=== PATIENT | female | born 1935 | race Caucasian/White ===

== ENCOUNTER 2021-07-23 09:19 | Emergency (ER) | payer MEDICARE ==
[~2021-07-23] VITALS: Ht 160 cm; Wt 55.3 kg
[2021-07-23 09:20] VITALS: BP 143/69
[2021-07-23] MEDS ORDERED: PRD20T PO (09:42)
--- NOTE | 2021-07-23 09:42 | ED Integumentary General ---
General Chief Complaint: Skin/Wound Problems Stated Complaint: RASH Nursing Triage Note: PT ARRIVED BY PRIVATE VEHICLE WITH CHIEF COMPLAINT OF RASH. PT WAS ALERT, ORIENTED X 4 AND AMBULATORY. PT STATED SHE WAS SEEN AT URGENT CARE ON SATURDAY FOR IT AND GOT A SHOT. SHE WENT BACK YESTERDAY FOR ANOTHER SHOT, BUT THEY WOULDN'T GIVE HER ONE, SO THEY GAVE HER TRIAMCINOLONE ACETONIDE CREAM 0.1%. SHE IS MISERABE SO SHE CAME HERE. PT STATED ONSET WAS PROBABLY SATURDAY NIGHT. PT IS ALLERGIC TO POISON CHENTE AND OAK. VITALS WERE DONE AND REPORT WAS GIVEN TO PROVIDER. History of Present Illness Date Seen by Provider: Jul 23, 2021 Time Seen by Provider: 09:38 Initial Comments 85-year-old female presents with complaint of a rash on her hands and her face under her breast for the past 5 days. States it began after working in her neighbor's yard, she has a history of poison chente. Seen by her PCP and given a shot 3 days ago and had relief for just a few hours and then it got worse the next day. She saw him again and got a prescription for steroid cream, was denied being given another shot. Today she is visible, with spreading rash and increase itching. Denies any chest pain, shortness of air or wheezing. Denies any tongue, mouth or lip swelling. Denies any fever chills or cough. Allergies and Home Medications Allergies Coded Allergies: poison chente extract (Verified Allergy, Unknown, 07/23/21) poison oak extract (Verified Allergy, Unknown, 07/23/21) Home Medications Prednisone 20 Mg Tab, 60 MG PO DAILY Take 3 po qd for 4 days, then 2 po for 5 days, then 1 po daily for 5 days Prescribed by: CONY BEATTY on 07/23/21 0942 Patient Home Medication List Home Medication List Reviewed: Yes Review of Systems Review of Systems Constitutional: No fever, No malaise, No weakness EENTM: no symptoms reported Respiratory: no symptoms reported Skin: see HPI, pruritus, rash Past Pdjsvgw-Rfbhda-Odnsbk Hx Patient Social History Tobacco Use?: No Smoking Status: Never a Smoker Substance use?: No Alcohol Use?: No Pt feels they are or have been: No Physical Exam Vital Signs Vital Signs - First Documented 07/23/21 09:20 Temp 37.1 Pulse 55 Resp 16 B/P (MAP) 143/69 (93) Pulse Ox 100 O2 Delivery Room Air Capillary Refill : Less Than 3 Seconds General Appearance: WD/WN, no apparent distress Skin: normal color, warm/dry, rash (erythematous maculopapular rash confluent of face, scattered on hands and fingers (did not examine chest). Consistent w contact derm) Progress/Results/Core Measures Results/Orders Vital Signs/I&O 07/23/21 09:20 Temp 37.1 Pulse 55 Resp 16 B/P (MAP) 143/69 (93) Pulse Ox 100 O2 Delivery Room Air Blood Pressure Mean: 93 Departure Impression Primary Impression: Contact dermatitis due to poison chente Disposition: HOME, SELF-CARE Condition: Stable Departure-Patient Inst. Decision time for Depature: 09:39 Referrals: VERENA RAMIREZ MD (PCP/Family) Primary Care Physician Patient Instructions: Poison Chente, Poison Hartman, Poison Sumac (DC) Add. Discharge Instructions: Follow up with Dr Ramirez in 1 week if not improving, sooner if worse. All discharge instructions reviewed with patient and/or family. Voiced understanding. Scripts Prednisone (Prednisone) 20 Mg Tab 60 MG PO DAILY, #19 TAB 0 Refills Take 3 po qd for 4 days, then 2 po for 5 days, then 1 po daily for 5 days Prov: CONY BEATTY DO 07/23/21 CONY BEATTY DO Jul 23, 2021 09:42
== END 2021-07-23 09:45 | disposition home or self-care (01) ==
LOC: EDUNIT# 09:19 → ER FS 09:22
DX: L25.5 Unspecified contact dermatitis due to plants, except food (principal)
CPT/HCPCS: 99282

== ENCOUNTER 2022-08-05 03:52 | Emergency (ER) | payer MEDICARE ==
[~2022-08-05] VITALS: Ht 160 cm; Wt 56.2 kg
[~2022-08-05 03:52] MED LIST: PRD20T PO
--- NOTE | 2022-08-05 04:09 | ED General ---
General Chief Complaint: General Problems/Pain Stated Complaint: SHAKY/COLD History of Present Illness Date Seen by Provider: Aug 05, 2022 Time Seen by Provider: 04:09 Initial Comments 86-year-old female with no significant PMH is here with complaints of waking up around 3:30 AM and feeling very shaky and mild burning sensation in her face. Patient states that she was mixing periods with killers around 11 AM yesterday morning, admixed about 14 gallons of 4 different types of weed killer sitting in her garage. She mixed Calvin, eraser and 2 other types of regular which she cannot remember the name. She is provided on her circular driveway. Patient took a shower after this. Patient is concerned that she is waking up shaky due to the exposure to the retailers. Denies ingestion of weed killer, diarrhea, nausea and vomiting, shortness of breath, headache, dizziness, blurry vision. Allergies and Home Medications Allergies Coded Allergies: poison hailey extract (Verified Allergy, Unknown, 07/23/21) poison oak extract (Verified Allergy, Unknown, 07/23/21) Patient Home Medication List Home Medication List Reviewed: Yes Prednisone (Prednisone) 20 Mg Tab, 60 MG PO DAILY Prescribed by: CONY BEATTY on 07/23/21 0942 Review of Systems Review of Systems Constitutional: no symptoms reported EENTM: no symptoms reported Respiratory: no symptoms reported Cardiovascular: no symptoms reported Gastrointestinal: no symptoms reported Genitourinary: no symptoms reported Musculoskeletal: no symptoms reported Skin: no symptoms reported Psychiatric/Neurological: No Symptoms Reported Hematologic/Lymphatic: No Symptoms Reported Immunological/Allergic: no symptoms reported Past Iqdncjv-Xwnheg-Ohccts Hx Patient Social History Tobacco Use?: No Use of E-Cig and/or Vaping dev: No Substance use?: No Alcohol Use?: No Pt feels they are or have been: No Immunizations Up To Date Influenza Vaccine Up-to-Date: Yes; Up-to-Date COVID19 Vaccine 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 oz. 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 Norm as Tested Skin: Normal Color Focused Exam Lactate Level 08/05/22 04:05: Lactic Acid Level 2.15*H Lactic Acid Level Laboratory Tests Test 08/05/22 04:05 Lactic Acid Level 2.15 MMOL/L (0.50-2.00) *H Progress/Results/Core Measures Suspected Sepsis SIRS Temperature: Pulse: Respiratory Rate: Laboratory Tests 08/05/22 04:05: White Blood Count 6.4 Blood Pressure / Mean: 08/05/22 04:05: Lactic Acid Level 2.15*H Laboratory Tests 08/05/22 04:05: Creatinine 0.80, Platelet Count 172, Total Bilirubin 0.2 Results/Orders Lab Results Laboratory Tests Test 08/05/22 04:05 08/05/22 04:45 Range/Units White Blood Count 6.4 4.3-11.0 10^3/uL Red Blood Count 3.55 L 3.80-5.11 10^6/uL Hemoglobin 10.9 L 11.5-16.0 g/dL Hematocrit 33 L 35-52 % Mean Corpuscular Volume 92 80-99 fL Mean Corpuscular Hemoglobin 31 25-34 pg Mean Corpuscular Hemoglobin Concent 33 32-36 g/dL Red Cell Distribution Width 13.7 10.0-14.5 % Platelet Count 172 130-400 10^3/uL Mean Platelet Volume 10.8 9.0-12.2 fL Immature Granulocyte % (Auto) 0 % Neutrophils (%) (Auto) 85 H 42-75 % Lymphocytes (%) (Auto) 11 L 12-44 % Monocytes (%) (Auto) 1 0-12 % Eosinophils (%) (Auto) 3 0-10 % Basophils (%) (Auto) 0 0-10 % Neutrophils # (Auto) 5.4 1.8-7.8 10^3/uL Lymphocytes # (Auto) 0.7 L 1.0-4.0 10^3/uL Monocytes # (Auto) 0.0 0.0-1.0 10^3/uL Eosinophils # (Auto) 0.2 0.0-0.3 10^3/uL Basophils # (Auto) 0.0 0.0-0.1 10^3/uL Immature Granulocyte # (Auto) 0.0 0.0-0.1 10^3/uL Sodium Level 140 135-145 MMOL/L Potassium Level 4.0 3.6-5.0 MMOL/L Chloride Level 107 98-107 MMOL/L Carbon Dioxide Level 24 21-32 MMOL/L Anion Gap 9 5-14 MMOL/L Blood Urea Nitrogen 19 H 7-18 MG/DL Creatinine 0.80 0.60-1.30 MG/DL Estimat Glomerular Filtration Rate 72 BUN/Creatinine Ratio 24 Glucose Level 96 70-105 MG/DL Lactic Acid Level 2.15 *H 0.50-2.00 MMOL/L Calcium Level 8.5 8.5-10.1 MG/DL Corrected Calcium 8.7 8.5-10.1 MG/DL Magnesium Level 1.8 1.6-2.4 MG/DL Total Bilirubin 0.2 0.1-1.0 MG/DL Aspartate Amino Transf (AST/SGOT) 20 5-34 U/L Alanine Aminotransferase (ALT/SGPT) 12 0-55 U/L Alkaline Phosphatase 62 40-136 U/L Troponin I < 0.30 <0.30 NG/ML Total Protein 5.7 L 6.4-8.2 GM/DL Albumin 3.7 3.2-4.5 GM/DL Urine Color YELLOW Urine Clarity SLIGHTLY CLOUDY Urine pH 6.0 5-9 Urine Specific [place] 1.010 L 1.016-1.022 Urine Protein NEGATIVE NEGATIVE Urine Glucose (UA) NEGATIVE NEGATIVE Urine Ketones NEGATIVE NEGATIVE Urine Nitrite POSITIVE H NEGATIVE Urine Bilirubin NEGATIVE NEGATIVE Urine Urobilinogen 0.2 < = 1.0 MG/DL Urine Leukocyte Esterase TRACE H NEGATIVE Urine RBC (Auto) 1+ H NEGATIVE Urine RBC NONE /HPF Urine WBC 50-100 H /HPF Urine Crystals NONE /LPF Urine Bacteria LARGE H /HPF Urine Casts NONE /LPF Urine Mucus NEGATIVE /LPF Urine Culture Indicated YES My Orders Orders - MANOLO LAWSON MD Cbc With Automated Diff (08/05/22 04:09) Comprehensive Metabolic Panel (08/05/22 04:09) Lactic Acid Analyzer (08/05/22 04:09) Magnesium (08/05/22 04:09) Ua Culture If Indicated (08/05/22 04:09) Ed Iv/Invasive Line Start (08/05/22 04:28) 1/2 Ns Iv Solution (0.45% Sodium Chlorid (08/05/22 04:28) Ekg Tracing (08/05/22 04:42) Urine Culture (08/05/22 04:45) Diphenhydramine Injection (Benadryl Inje (08/05/22 04:45) Nitrofurantoin Capsule,Macro (Macrobid C (08/05/22 05:32) Famotidine Injection (Pepcid Injection) (08/05/22 05:45) Antacid Suspension (Mylanta Suspension (08/05/22 05:45) Troponin I Fs (08/05/22 05:38) Medications Given in ED Current Medications Medications Dose Ordered Sig/José Miguel Route Start Time Stop Time Status Last Admin Dose Admin Al Hydrox/Mg Hydrox/Simethicone 30 ml ONCE ONCE PO 08/05/22 05:45 08/05/22 05:46 DC 08/05/22 05:56 30 ML Diphenhydramine HCl 25 mg ONCE ONCE IVP 08/05/22 04:45 08/05/22 05:00 DC 08/05/22 05:07 25 MG Famotidine 20 mg ONCE ONCE IVP 08/05/22 05:45 08/05/22 05:46 DC 08/05/22 05:57 20 MG Vital Signs/I&O 08/05/22 03:58 Temp 37.1 Pulse 92 Resp 16 B/P (MAP) 108/90 (96) Pulse Ox 95 O2 Delivery Room Air Capillary Refill : Progress Note : Progress Note 1. GLYOPHOSATE EXPOSURE: - CBC/ CMP unremarkable - EKG: unremarkable - Troponin undetected - NS IVF bolus - Benadryl 25mg iv - Called Poison Control at 04:18AM, spoke with Jennifer, and was advised that pt is out of window for symptoms, and stated no need for labs or monitoring, and can give Benadryl or Benzos for anxiety or local reaction -The patient was seen in the ED, and treated appropriately to presentation at a specific point in time. Patient is informed that there is a possibility that disease and illness can evolve and change in acuity rapidly or slowly after patient is discharged from the ER. Precautionary advice given to the patient for immediate return to ER if symptoms worsen or do not resolve, and to seek emergency care sooner rather than later. Pt also advised on the importance of PCP follow up and compliance with management and follow up plan with PCP and/or specialist, as this is part of the management plan. Pt verbally expressed understanding. 2. UTI: - UA is positive for leukocyte esterase, nitrites, bacteria, WBC, RBC - Nitrofurantoin 100mg bid for 7 days with first tab in ER - Advised adequate hydration - Follow up with PCP in 3 to 7 days Departure Impression Primary Impression: Exposure to environmental toxic substances Additional Impression: UTI (urinary tract infection) Qualified Codes: N30.01 - Acute cystitis with hematuria Disposition: HOME, SELF-CARE Condition: Improved Departure-Patient Inst. Referrals: VERENA PIEDRA MD (PCP/Family) Primary Care Physician Patient Instructions: Chemical Exposure to the Skin (DC), Urinary Tract Infection, Adult ED Add. Discharge Instructions: - Nitrofurantoin 100mg bid for 7 days with first tab in ER - Advised adequate hydration - Follow up with PCP in 3 to 7 days All discharge instructions reviewed with patient and/or family. Voiced understanding. Scripts Nitrofurantoin Macrocrystal (Nitrofurantoin) 100 Mg Capsule 100 MG PO BID for 7 Days, #14 CAP Prov: MANOLO LAWSON MD 08/05/22 MANOLO LAWSON MD Aug 05, 2022 04:09
[2022-08-05] MEDS ORDERED: 1/2 NS IV SOLUTION 1,000 ML IV STA (04:28)
[2022-08-05 04:37] LABS: BASOPHILS % (AUTO) 0 % (0-10); EOSINOPHILS # (AUTO) 0.2 10^3/uL (0.0-0.3); EOSINOPHILS % (AUTO) 3 % (0-10); HEMATOCRIT 33 % (35-52); HEMOGLOBIN 10.9 g/dL (11.5-16.0); LYMPHOCYTES # (AUTO) 0.7 10^3/uL (1.0-4.0); LYMPHOCYTES % (AUTO) 11 % (12-44); MEAN CORPUSCULAR HEMOGLOBIN 31 pg (25-34); MEAN CORPUSCULAR HGB CONC 33 g/dL (32-36); MEAN CORPUSCULAR VOLUME 92 fL (80-99); MEAN PLATELET VOLUME 10.8 fL (9.0-12.2); MONOCYTES % (AUTO) 1 % (0-12); NEUTROPHILS # (AUTO) 5.4 10^3/uL (1.8-7.8); NEUTROPHILS % (AUTO) 85 % (42-75); PLATELET COUNT 172 10^3/uL (130-400); WHITE BLOOD COUNT 6.4 10^3/uL (4.3-11.0)
[2022-08-05] MEDS ORDERED: diphenhydrAMINE 50 MG/ML INJ (BENADRYL) IVP ONE (04:45)
[2022-08-05 04:53] LABS: BILIRUBIN,URINE NEGATIVE (NEGATIVE); CLARITY,URINE SLIGHTLY CLOUDY; COLOR,URINE YELLOW; GLUCOSE, URINE (UA) NEGATIVE (NEGATIVE); KETONES,URINE NEGATIVE (NEGATIVE); LEUKOCYTE ESTERASE ,URINE TRACE (NEGATIVE); NITRITE,URINE POSITIVE (NEGATIVE); PROTEIN,URINE NEGATIVE (NEGATIVE)
[2022-08-05 04:55] LABS: BACTERIA,URINE LARGE /HPF; WBC,URINE 50-100 /HPF
[2022-08-05 05:01] LABS: BILIRUBIN,TOTAL 0.2 MG/DL (0.1-1.0); CALCIUM 8.5 MG/DL (8.5-10.1); CREATININE SERUM 0.8 MG/DL (0.60-1.30); MAGNESIUM 1.8 MG/DL (1.6-2.4)
[2022-08-05 05:02] LABS: ALBUMIN 3.7 GM/DL (3.2-4.5); TOTAL PROTEIN 5.7 GM/DL (6.4-8.2)
[2022-08-05] MEDS ORDERED: NITROFURANTOIN 100 MG (MACROBID) CAPSULE PO STA (05:32)
[2022-08-05] MEDS ORDERED: ANTACID SUSP 30 ML UDC (MYLANTA) PO ONE (05:45)
[2022-08-05] MEDS ORDERED: FAMOTIDINE 20MG/2ML IV (PEPCID) IVP ONE (05:45)
[2022-08-05] MEDS ORDERED: NITR100C PO (06:39)
[2022-08-05 06:41] VITALS: BP 126/84
== END 2022-08-05 06:51 | disposition home or self-care (01) ==
LOC: EDUNIT# 03:52 → ER FS 03:57
DX: N39.0 Urinary tract infection, site not specified (principal); Z77.118 Contact with and (suspected) exposure to other environmental pollution
CPT/HCPCS: 36415; 80053; 81000; 83605; 83735; 84484; 85025; 87077; 87088; 87186; 93005

== ENCOUNTER 2023-06-16 09:34 | Emergency (ER) | payer MEDICARE ==
[~2023-06-16] VITALS: Ht 162.6 cm; Wt 55.8 kg
[~2023-06-16 09:34] MED LIST changes: +NITR100C PO
--- NOTE | 2023-06-16 09:45 | ED EENT ---
History of Present Illness General Stated Complaint: FACIAL SWELLING History of Present Illness Date Seen by Provider: Jun 16, 2023 Time Seen by Provider: 09:42 Initial Comments 87-year-old female with PMH of allergies to poison chente and poison oak, is here with complaints of bilateral periorbital edema which began on (06/13/23), after she spent time cutting the grass and weeding her garden. Patient is unsure if she was exposed to poison chente or not, although it is possible. Patient states that every year she gets this type of edema around her eyes and gets a steroid shot which helps it improve. Patient states that she feels a stinging and mild itching sensation around her eyes. Patient went to urgent care yesterday and was given a Zyrtec prescription as well as prednisone 20 mg daily for 3 days. Patient states that she feels the swelling is more today. Denies fever and chills, shortness of breath, oral swelling, nausea and vomiting, abdominal pain, eye discharge, eye redness. Patient is speaking in c lear sentences and has stable vitals without any evidence of airway compromise. Patient has a dirty towel that is wet, which she keeps placing on her eyes. Allergies and Home Medications Allergies Coded Allergies: poison chente extract (Verified Allergy, Unknown, 07/23/21) poison oak extract (Verified Allergy, Unknown, 07/23/21) Patient Home Medication List Home Medication List Reviewed: Yes Diphenhydramine HCl (Benadryl) 25 Mg Capsule, 25 MG PO TID Prescribed by: MANOLO LAWSON MD on 06/16/23 1010 Epinephrine (Epipen 2-Fredy) 0.3 Mg/0.3 Ml Auto.injct, 0.3 MG IJ ONCE PRN for SHORTNESS OF BREATH Prescribed by: MANOLO LAWSON MD on 06/16/23 1010 Nitrofurantoin Macrocrystal (Nitrofurantoin) 100 Mg Capsule, 100 MG PO BID Prescribed by: MANOLO LAWSON MD on 08/05/22 0639 Prednisone (Prednisone) 20 Mg Tab, 60 MG PO DAILY Prescribed by: CONY BEATTY on 07/23/21 0942 Prednisone (Prednisone) 50 Mg Tab, 50 MG PO DAILY Prescribed by: MANOLO LAWSON MD on 06/16/23 1010 Review of Systems Review of Systems Constitutional: no symptoms reported Eyes: See HPI, Inflammation Ears: No Symptoms Reported Nose: no symptoms reported Mouth: no symptoms reported Throat: no symptoms reported Respiratory: no symptoms reported Cardiovascular: no symptoms reported Gastrointestinal: no symptoms reported Neurological: No Symptoms Reported Physical Exam Vital Signs Vital Signs - First Documented 06/16/23 09:39 Temp 36.1 Pulse 67 Resp 19 B/P (MAP) 181/95 (123) O2 Delivery Room Air Height, Weight, BMI Height: '" Weight: lbs. oz. kg; 21.00 BMI Method: General Appearance: WD/WN, no apparent distress Eyes: bilateral eye PERRL, bilateral eye EOMI, bilateral eye lid inflammation (Periorbital edema present bilaterally, appears to be fluid-filled edema. No evidence of cellulitis since there is no erythema, not warm to touch, skin texture not like cellulitis.), bilateral eye other (Conjunctiva and cornea are n ormal with no evidence of inflammation or infection.) Nose: normal inspection Mouth/Throat: normal mouth inspection Neck: non-tender, supple Cardiovascular: regular rate, rhythm, no edema Respiratory: lungs clear, normal breath sounds, no respiratory distress Gastrointestinal: non tender, soft Neurologic/Psychiatric: alert, oriented x 3 Progress/Results/Core Measures Results/Orders My Orders Orders - MANOLO LAWSON MD Methylprednisolone Sod Succ (Solu-Medrol (06/16/23 09:56) Vital Signs/I&O 06/16/23 09:39 Temp 36.1 Pulse 67 Resp 19 B/P (MAP) 181/95 (123) O2 Delivery Room Air Progress Progress Note : Progress Note 1. BILATERAL HARINI-ORBITAL EDEMA/ LIKELY POISON CHENTE CONTACT DERMATITIS: - SOlu-medrol 125mg iv given in ER - Prednidone prescription for 50mg daily for the next 4 days - Benadryl 2g mg every 8 hours for the next [address] taking this medication - Continue Zyrtec as prescribed by urgent care - Epi-pen prescription given to be used in case of respiratory distress progression - Follow up with Ophthalmology tomorrow, and with PCP in the next 3 days. Call to make appointment. - Return to ER if symptoms worsen. - Cool compresses with paper towel/ ice - Sleep with head elevated - Keep face/ eyes clean. -The patient was seen in the ED, and treated appropriately to presentation at a specific point in time. Patient is informed that there is a possibility that disease and illness can evolve and change in acuity rapidly or slowly after patient is discharged from the ER. Precautionary advice given to the patient for immediate return to ER if symptoms worsen or do not resolve, and to seek emergency care sooner rather than later. Pt also advised on the importance of PCP follow up and compliance with management and follow up plan with PCP and/or specialist, as this is part of the management plan. Pt verbally expressed understanding. Departure Impression Primary Impression: Periorbital edema of both eyes Additional Impression: Plant irritant contact dermatitis Disposition: HOME, SELF-CARE Condition: Stable Departure-Patient Inst. Referrals: VERENA PIEDRA MD (PCP/Family) Primary Care Physician Patient Instructions: Poison Chente, Poison Jermyn, Poison Sumac (DC) Add. Discharge Instructions: - Prednidone prescription for 50mg daily for the next 4 days - Benadryl 2g mg every 8 hours for the next [address] taking this medication - Continue Zyrtec as prescribed by urgent care - Epi-pen prescription given to be used in case of respiratory distress progression - Cool compresses with paper towel/ ice - Sleep with head elevated - Keep face/ eyes clean. - Follow up with Ophthalmology tomorrow, and with PCP in the next 3 days. Call to make appointment. - Return to ER if symptoms worsen. Scripts Epinephrine (Epipen 2-Fredy) 0.3 Mg/0.3 Ml Auto.injct 0.3 MG IJ ONCE PRN for SHORTNESS OF BREATH for 1 Day, #1 ML Prov: MANOLO LAWSON MD 06/16/23 Diphenhydramine HCl (Benadryl) 25 Mg Capsule 25 MG PO TID for 3 Days, #9 CAP Prov: MANOLO LAWSON MD 06/16/23 Prednisone (Prednisone) 50 Mg Tab 50 MG PO DAILY for 4 Days, #4 TAB Prov: MANOLO LAWSON MD 06/16/23 MANOLO LAWSON MD Jun 16, 2023 09:45
[2023-06-16] MEDS ORDERED: methylPREDNISolone 125 MG (Solu-MEDROL) VIAL IV STA (09:56)
[2023-06-16] MEDS ORDERED: PRD50T PO (10:10)
[2023-06-16] MEDS ORDERED: EPIN0.3P3 IJ (10:10)
[2023-06-16] MEDS ORDERED: DIPH25CA79 PO (10:10)
[2023-06-16 10:13] VITALS: BP 132/68
== END 2023-06-16 10:14 | disposition home or self-care (01) ==
LOC: EDUNIT# 09:34 → ER FS 09:35
DX: L24.7 Irritant contact dermatitis due to plants, except food (principal)
CPT/HCPCS: 99283